=== PATIENT | male | born 1975 | race Hispanic/Latino ===

== ENCOUNTER 2023-01-16 14:10 | Emergency (ER) | payer BC ==
[2023-01-16 14:57] LABS: Absolute Lymphocytes (CBC) 8.1 K/uL (0.7-4.9); Hematocrit 45.2 % (39.6-49.0); Lymphocytes % 61.4 % (15.3-44.8); MCV 91.6 fL (80-100); MPV 8.6 fL (7.6-11.3); RBC Red Blood Cell Count 4.93 M/uL (4.33-5.43)
[2023-01-16 14:59] LABS: Protime INR 0.96
[2023-01-16 15:19] LABS: Bilirubin Direct 0.1 mg/dL (0-0.2); Bilirubin Total 0.4 mg/dL (0.2-1.0); Magnesium 2.1 mg/dL (1.6-2.4); Protein, Total 7.2 g/dL (6.4-8.2)
[2023-01-16 15:38] LABS: Blood Morphology Comment NOT SEEN (NOT SEEN); Platelet Estimate ADEQ; Smudge Cells PRESENT
--- NOTE | 2023-01-16 16:03 | RAD REPORT ---
EXAM DESCRIPTION: Svetlana Single View01/16/2023 3:12 pm CLINICAL HISTORY: CHEST PAIN COMPARISON: No comparisons TECHNIQUE: Portable AP view of the chest. FINDINGS: The lungs are clear. Mild right basilar atelectasis. No pneumothorax or effusion. The car diomediastinal contours are unremarkable. IMPRESSION: No acute cardiopulmonary process.
--- NOTE | 2023-01-16 16:28 | EDPHYS ---
Physician Documentation [facility] Name: Arturo Watson Age: 47 yrs Sex: Male : 1975 Arrival Date: 01/16/2023 Time: 14:12 Bed 17 Private MD: Torres Hampton E ED Physician Shankar Andrade HPI: 01/16 14:30 This 47 yrs old Male presents to ER via Ambulatory with complaints of Chest jh7 Pain, >125 HR. 14:30 Onset: The symptoms/episode began/occurred 3 day(s) ago. Associated signs and symptoms: jh7 Pertinent positives: palpitations, chest "soreness" , Pertinent negatives: fever, shortness of breath, vomiting, wheezing. 47-year-old male complains of intermittent palpitations for the past 3 days. Reports that his Apple Watch showed a heart rate of 170 on Monday he was seen at [facility] ER then all labs, EKG, and chest x-ray were normal. He reports that he had another episode on Monday where his heart rate increased to 160. He went to [facility] ER and all labs, chest x-ray, and CT scan for PE were negative. He reports that he had a quick episode of palpitations to 150 today with some chest soreness afterwards. Reports that nothing exacerbates the palpitations and that it is happened when he is watching TV. Denies any symptoms at this time. Reports that he has an appointment with the taxicab coordinator tomorrow. HX of CLL, sees Dr. Manriquez.. Historical: - Allergies: 14:30 No Known Allergies; jh5 - PMHx: 14:30 CLL; jh5 - PSHx: 14:30 RIGHT ROTATOR CUFF; jh5 - Immunization history:: Adult Immunizations up to date. - Social history:: Smoking status: Patient denies any tobacco usage or history of. ROS: 14:30 Constitutional: Negative for fever, chills, and weight loss, Eyes: Negative for injury, jh7 pain, redness, and discharge, Neck: Negative for injury, pain, and swelling, Respiratory: Negative for shortness of breath, cough, wheezing, and pleuritic chest pain, Abdomen/GI: Negative for abdominal pain, nausea, vomiting, diarrhea, and constipation, Back: Negative for injury and pain, MS/Extremity: Negative for injury and deformity, Skin: Negative for injury, rash, and discoloration, Neuro: Negative for headache, weakness, numbness, tingling, and seizure. 14:30 Cardiovascular: Positive for palpitations. 14:30 All other systems are negative. Exam: 14:30 Constitutional: This is a well developed, well nourished patient who is awake, alert, jh7 and in no acute distress. Head/Face: Normocephalic, atraumatic. Eyes: Pupils equal round and reactive to light, extra-ocular motions intact. Lids and lashes normal. Conjunctiva and sclera are non-icteric and not injected. Cornea within normal limits. Periorbital areas with no swelling, redness, or edema. ENT: Nares patent. No nasal discharge, no septal abnormalities noted. Tympanic membranes are normal and external auditory canals are clear. Oropharynx with no redness, swelling, or masses, exudates, or evidence of obstruction, uvula midline. Mucous membranes moist. Neck: Trachea midline, no thyromegaly or masses palpated, and no cervical lymphadenopathy. Supple, full range of motion without nuchal rigidity, or vertebral point tenderness. No Meningismus. Respiratory: Lungs have equal breath sounds bilaterally, clear to auscultation and percussion. No rales, rhonchi or wheezes noted. No increased work of breathing, no retractions or nasal flaring. Abdomen/GI: Soft, non-tender, with normal bowel sounds. No distension or tympany. No guarding or rebound. No evidence of tenderness throughout. Back: No spinal tenderness. No costovertebral tenderness. Full range of motion. Skin: Warm, dry with normal turgor. Normal color with no rashes, no lesions, and no evidence of cellulitis. MS/ Extremity: Pulses equal, no cyanosis. Neurovascular intact. Full, normal range of motion. Neuro: Awake and alert, GCS 15, oriented to person, place, time, and situation. Cranial nerves II-XII grossly intact. Motor strength 5/5 in all extremities. Sensory grossly intact. Cerebellar exam normal. Normal gait. Vital Signs: 14:27 BP 136 / 88; Pulse 98; Resp 16; Temp 98.6; Pulse Ox 98% ; Weight 97.52 kg; Height 5 ft. jh5 10 in. (177.80 cm); Pain 0/10; 14:30 BP 114 / 94; Pulse 97; Resp 18; Pulse Ox 97% on R/A; db 15:30 BP 116 / 72; Pulse 87; Resp 16; Pulse Ox 99% on R/A; db 16:00 BP 122 / 91; Pulse 87; Resp 16; Pulse Ox 99% on R/A; db 14:27 Body Mass Index 30.85 (97.52 kg, 177.80 cm) 5 MDM: 14:13 Patient medically screened. 7 16:10 Differential diagnosis: viral Infection, bacterial infection, pneumonia A-fib, acute jh7 FL, electrolyte imbalance, SVT. Data reviewed: vital signs, nurses notes, lab test result(s), EKG, radiologic studies, plain films. Consideration of Admission/Observation Escalation of care including admission/observation considered. Independent interpretation of the following test(s) in the Emergency Department EKG: See my EKG interpretation above X-Ray: My interpretation is No acute changes. Care significantly affected by the following chronic conditions: Cancer. Counseling: I had a detailed discussion with the patient and/or guardian regarding: the historical points, exam findings, and any diagnostic results supporting the discharge/admit diagnosis, lab results, radiology results, the need for outpatient follow up, a taxicab coordinator, to return to the emergency department if symptoms worsen or persist or if there are any questions or concerns that arise at home. Special discussion: Patient denied any symptoms during his ER stay. He states that his WBC count and lymphocytes are chronically elevated. All labs, EKG, and chest x-ray reviewed. Offered admission for observation, but the patient stated that he did not want to lose his cardiology appointment tomorrow. Agreed to discharge, but informed him that if he develops a return of symptoms or any new concerning symptoms, he may return to the ER for further eval.. 01/16 14:26 Order name: Basic Metabolic Panel; Complete Time: 15:26 [facility] 01/16 14:26 Order name: CBC with Diff; Complete Time: 15:44 [facility] 01/16 14:26 Order name: D-Dimer; Complete Time: 15:13 [facility] 01/16 14:26 Order name: LFT's; Complete Time: 15:26 [facility] 01/16 14:26 Order name: Magnesium; Complete Time: 15:26 [facility] 01/16 14:26 Order name: NT PRO-BNP; Complete Time: 15:26 [facility] 01/16 14:26 Order name: PT-INR; Complete Time: 15:13 [facility] 01/16 14:26 Order name: Troponin HS; Complete Time: 15:26 [facility] 01/16 14:26 Order name: XRAY Chest (1 view); Complete Time: 16:06 [facility] 01/16 14:26 Order name: EKG; Complete Time: 14:27 [facility] 01/16 14:26 Order name: Cardiac monitoring; Complete Time: 14:49 [facility] 01/16 14:26 Order name: EKG - Nurse/Tech; Complete Time: 14:49 [facility] 01/16 14:26 Order name: IV Saline Lock; Complete Time: 14:49 [facility] 01/16 15:39 Order name: Manual Differential; Complete Time: 15:44 [facility] 01/16 14:26 Order name: Labs collected and sent; Complete Time: 14:49 [facility] 01/16 14:26 Order name: O2 Per Protocol; Complete Time: 14:50 [facility] 01/16 14:26 Order name: O2 Sat Monitoring; Complete Time: 14:50 [facility] EC:31 Rate is 95 beats/min. Rhythm is regular. QRS [place] is Normal. ME interval is normal at [facility] 130 msec. QRS interval is normal at 70 msec. QT interval is normal at 318 msec. No Q waves. T waves are Normal. No ST changes noted. Clinical impression: Normal ECG. Administered Medications: No medications were administered Disposition: 16:00 Co-signature as Attending Physician, Shankar ÁLVAREZ was immediately available on-site ms3 in the Emergency Department for consultation in the care of the patient. Disposition Summary: 01/16/23 16:27 Discharge Ordered Location: Home [facility] Problem: new [facility] Symptoms: are resolved [facility] Condition: Stable [facility] Diagnosis - Palpitations [facility] Followup: [facility] - With: Private Physician - When: Tomorrow - Reason: Discharge Instructions: - Discharge Summary Sheet [facility] - Palpitations [facility] Forms: - Medication Reconciliation Form [facility] - Thank You Letter [facility] Signatures: Dispatcher [employer] EDShankar Cruz DO DO ms3 Katelin Perez, RN RN jh5 Carissa Escobedo FNP MACHINE WORKER [facility]
--- NOTE | 2023-01-16 16:28 | ER ---
Nurse's Notes [facility] Name: Arturo Watson Age: 47 yrs Sex: Male : 1975 Arrival Date: 01/16/2023 Time: 14:12 Bed 17 Private MD: Torres Hampton E Diagnosis: Palpitations Presentation: 01/16 14:27 Chief complaint: Patient states: these past couple days my heart rate will go real fast jh5 and then normal and it's just spells each day. It has never happened before. The first day this happened i had chest pain but not since then other than some soreness. Coronavirus screen: Vaccine status: Patient reports receiving the 1st dose of the Covid vaccine. Client denies travel out of the [place] in the last 14 days. Ebola Screen: Patient negative for fever greater than or equal to 101.5 degrees Fahrenheit, and additional compatible Ebola Virus Disease symptoms Patient denies exposure to infectious person. Patient denies travel to an Ebola-affected area in the 21 days before illness onset. Initial Sepsis Screen: Does the patient meet any 2 criteria? No. Patient's initial sepsis screen is negative. Does the patient have a suspected source of infection? No. Patient's initial sepsis screen is negative. Risk Assessment: Do you want to hurt yourself or someone else? Patient reports no desire to harm self or others. Onset of symptoms was January 13, 2023. 14:27 Method Of Arrival: Ambulatory [facility] 14:27 Acuity: RAMU 3 jh5 Triage Assessment: 14:27 Pain: Denies pain. Cardiovascular: Reports ACCELERATED HEART RATE. [facility] 14:30 General: Appears uncomfortable, slender, well groomed, well developed, Behavior is jh5 calm, cooperative, appropriate for age. Historical: - Allergies: 14:30 No Known Allergies; jh5 - PMHx: 14:30 CLL; jh5 - PSHx: 14:30 RIGHT ROTATOR CUFF; jh5 - Immunization history:: Adult Immunizations up to date. - Social history:: Smoking status: Patient denies any tobacco usage or history of. Screenin:00 [facility] ED Fall Risk Assessment (Adult) History of falling in the last 3 months, db including since admission No falls in past 3 months (0 pts) Confusion or Disorientation No (0 pts) Intoxicated or Sedated No (0 pts) Impaired Gait No (0 pts) Mobility Assist Device Used No (0 pt) Altered Elimination No (0 pt) Score/Fall Risk Level 0 - 2 = Low Risk Oriented to surroundings, Maintained a safe environment. Abuse screen: Denies threats or abuse. Denies injuries from another. Nutritional screening: No deficits noted. Tuberculosis screening: No symptoms or risk factors identified. Assessment: 14:45 Reassessment: Patient appears in no apparent distress at this time. Patient and/or db family updated on plan of care and expected duration. Pain level reassessed. Patient is alert, oriented x 3, equal unlabored respirations, skin warm/dry/pink. complains of chest pain with tachycardia heart feels a bit tight when it happens. denies pain now. General: Appears in no apparent distress. comfortable, Behavior is calm, cooperative. Pain: Complains of pain in chest Pain does not radiate. Pain began suddenly. Neuro: Level of Consciousness is awake, alert, obeys commands, Oriented to person, place, time, situation. Cardiovascular: Capillary refill < 3 seconds Rhythm is sinus rhythm. Respiratory: Airway is patent Respiratory effort is even, unlabored, Respiratory pattern is regular, symmetrical. GI: Abdomen is flat. 15:30 Reassessment: Patient appears in no apparent distress at this time. Patient and/or db family updated on plan of care and expected duration. Pain level reassessed. Patient is alert, oriented x 3, equal unlabored respirations, skin warm/dry/pink. 16:40 Reassessment: Patient appears in no apparent distress at this time. Patient and/or db family updated on plan of care and expected duration. Pain level reassessed. Patient is alert, oriented x 3, equal unlabored respirations, skin warm/dry/pink. Vital Signs: 14:27 BP 136 / 88; Pulse 98; Resp 16; Temp 98.6; Pulse Ox 98% ; Weight 97.52 kg; Height 5 ft. jh5 10 in. (177.80 cm); Pain 0/10; 14:30 BP 114 / 94; Pulse 97; Resp 18; Pulse Ox 97% on R/A; db 15:30 BP 116 / 72; Pulse 87; Resp 16; Pulse Ox 99% on R/A; db 16:00 BP 122 / 91; Pulse 87; Resp 16; Pulse Ox 99% on R/A; db 14:27 Body Mass Index 30.85 (97.52 kg, 177.80 cm) [facility] ED Course: 14:12 Patient arrived in ED. am2 14:12 Torres Hampton MD is Private Physician. am2 14:13 Carissa Escobedo FNP is [facility]. jh7 14:13 Shankar Andrade DO is Attending Physician. [facility] 14:27 Arm band placed on right wrist. 5 14:30 Triage completed. 5 14:44 Ambar Rader, RN is Primary Nurse. db 14:49 Basic Metabolic Panel Sent. bc6 14:49 CBC with Diff Sent. bc6 14:49 D-Dimer Sent. bc6 14:49 LFT's Sent. bc6 14:49 Magnesium Sent. bc6 14:49 NT PRO-BNP Sent. bc6 14:50 PT-INR Sent. bc6 14:50 Troponin HS Sent. bc6 14:50 Inserted saline lock: 20 gauge in right antecubital area, using aseptic technique. bc6 15:14 XRAY Chest (1 view) In Process Unspecified. EDMS 16:40 Patient has correct armband on for positive identification. Bed in low position. Call db light in reach. Side rails up X 1. Client placed on continuous cardiac and pulse oximetry monitoring. NIBP monitoring applied. 16:40 Patient maintains SpO2 saturation greater than 95% on room air. db 16:47 No provider procedures requiring assistance completed. IV discontinued, intact, db bleeding controlled, No redness/swelling at site. Administered Medications: No medications were administered Medication: 16:40 VIS not applicable for this client. db Outcome: 16:27 Discharge ordered by . [facility] 16:47 Discharged to home ambulatory. db 16:47 Condition: stable 16:47 Discharge instructions given to patient, Instructed on discharge instructions, follow up and referral plans. 16:47 Patient left the ED. db Signatures: Dispatcher [employer] EDKY Shawnee Piper 2 Katelin Perez, RN RN [facility] Carissa Escobedo FNP [place] [id number] Ambar Rader, RN RN Jessica Arrington 6 Corrections: (The following items were deleted from the chart) 14:31 14:27 Pulse 100bpm; Resp 16bpm; Pulse Ox 98%; Temp 98.6F; 97.52 kg; Height 5 ft. 10 jh5 in.; BMI: 30.8; Pain 0/10; jh5
[2023-01-16 17:05] VITALS: TEMP 98.6
[2023-01-16 17:12] VITALS: O2SAT 99
[2023-01-16 17:13] VITALS: BP 122/91
--- NOTE | 2023-01-16 18:37 | EKG ---
Test Date: 2023-01-16 Test Time: 14:31:53 Material Manager: JONATHON MEASUREMENT RESULTS: Intervals: Rate: 95 [place]: 130 QRSD: 70 QT: 318 QTc: 399 [place]: P: 5 [place]: 130 QRS: 20 T: 7 INTERPRETIVE STATEMENTS: Normal sinus rhythm Normal ECG No previous ECG available for comparison Electronically Signed On 01-16-23 18:36:40 BOTTLE CAPPER by Raul Robles
== END 2023-01-16 16:47 | disposition home or self-care (01) ==
LOC: ER 14:10
DX: R00.2 Palpitations (principal); R07.89 Other chest pain
CPT/HCPCS: 36415; 71045; 80048; 80076; 83735; 83880; 84484; 85025; 85379; 85610; 93005; 99285

== ENCOUNTER 2024-11-08 15:49 | Emergency (ER) | payer BC ==
[2024-11-08] MEDS ORDERED: NA CHLORIDE 0.9% 1,000 ML ONE (16:38)
[2024-11-08 16:57] LABS: Absolute Eosinophils 0.2 K/uL (0-0.5); Absolute Lymphocytes (CBC) 9.3 K/uL (0.7-4.9); Absolute Monocytes 0.5 K/uL (0.1-1.3); Absolute Neutrophil 4.4 K/uL (1.8-8.0); Basophils % 0.3 % (0-1.3); Eosinophils % 1.3 % (0-4.4); Hematocrit 45.2 % (39.6-49.0); Hemoglobin 15.4 g/dL (13.6-17.9); Lymphocytes % 64.1 % (15.3-44.8); MCH 30.8 pg (27.0-35.0); MCV 90.5 fL (80-100); MPV 8.5 fL (7.6-11.3); Monocytes % 3.6 % (3.3-12.3); Neutrophils % 30.7 % (41.7-73.7); Nucleated RBC Absolute Count 0.1 (0-0); Nucleated Red Blood Cells % 0.3 % (0-0); Platelets 183 thou/uL (152-406)
[2024-11-08 16:59] LABS: PTT, Activated Partial Thromb 28.3 SECONDS (24.3-36.9); Protime INR 0.98
[2024-11-08 17:04] LABS: Blood Morphology Comment NOT SEEN (NOT SEEN); Platelet Estimate ADEQ; White Blood Cell Scan OK (OK)
[2024-11-08 17:07] LABS: ALT/SGPT 49 U/L (16-61); AST/SGOT 25 U/L (15-37); Albumin 3.7 g/dL (3.4-5.0); Albumin/Globulin Ratio 1.1 (1.1-1.8); Alkaline Phosphatase 108 U/L (45-117); Anion Gap 8.3 mEq/L (5.0-15.0); BUN Blood Urea Nitrogen 9 mg/dL (7-18); Bicarbonate 27 mEq/L (21-32); Bilirubin Total 0.5 mg/dL (0.2-1.0); Globulin 3.3 g/dL (2.3-3.5); Glomerular Filtration Rate 73 ml/min (=/>90); Glucose Level 155 mg/dL (74-106); Magnesium 1.9 mg/dL (1.6-2.4); Potassium 3.3 mEq/L (3.5-5.1); Sodium Level 139 mEq/L (136-145); Troponin High Sensitivity 3.2 pg/mL (<58.9)
[2024-11-08 17:20] LABS: Bilirubin Direct < 0.2 mg/dL (0-0.2); Bilirubin Indirect, Calculated 0.3 mg/dL (0.2-0.8)
[2024-11-08] MEDS ORDERED: ONDANSETRON 4 MG/2 ML VIAL ONE (17:53)
[2024-11-08] MEDS ORDERED: MORPHINE 4 MG/ML SYR ONE (17:53)
--- NOTE | 2024-11-08 18:29 | RAD REPORT ---
EXAM: CT Head Brain Wo Cont HISTORY: CLL, blurred vision, SUERO COMPARISON: None TECHNIQUE: Multiple contiguous axial images were obtained for a CT of the brain without contrast. Sag ittal and coronal reformats were performed. One or more of the following dose reduction techniques were used: Automated exposure control, adjus tment of the mA and kV according to patient size, and iterative reconstruction. Unless otherwise specified, incidental findings do not require dedicated imaging follow-up. FINDINGS: No evidence of hydrocephalus, intracranial hemorrhage, or extra-axial fluid collection. The brain is normal in morphology. The calvarium is intact. The visualized paranasal sinuses and mastoid air cells are essentially clear . IMPRESSION: No evidence of acute intracranial abnormality.
--- NOTE | 2024-11-08 18:37 | RAD REPORT ---
EXAMINATION: CTA HEAD CLINICAL INDICATION: Male, 49 years old. h/o CLL, Blurred vision right eye + SUERO TECHNIQUE: Axial CT images were obtained through the head after intravenous contrast utilizing angiog raphic protocol with 3D post-processing (maximum intensity projection images, volume rendered images and/or shaded surface rendered images). One or more of the following dose reduction technique s were used: Automated exposure control, adjustment of the mA and/or kV according to patient size, and/or iterative reconstruction. Unless otherwise specified, incidental findings do not require dedic ated imaging follow-up. COMPARISON: No prior exam. FINDINGS: ICA: The petrous, cavernous, and supraclinoid segments of the bilateral internal carotid arteries are normal. MAGUE: Anterior cerebral arteries are normal bilaterally except for congenitally hypoplastic left A1 se gment. The anterior communicating artery is patent. MCA: Middle cerebral arteries are normal bilaterally. SECURITY SHIFT SUPERVISOR: Posterior cerebral arteries are normal bilaterally. Left posterior communicating artery is paten t. Left P1 segment is diminutive. Vertebrobasilar: The vertebral arteries are patent, with markedly diminutive appearance of the right intradural vertebral artery. The basilar artery is normal in appearance. 3D images confirm these findings. IMPRESSION: No evidence of large vessel occlusion or hemodynamically significant stenosis. Developmental changes as above.
--- NOTE | 2024-11-08 18:41 | RAD REPORT ---
EXAMINATION: CT Neck Angio CLINICAL INDICATION: Male, 49 years old. [facility] CLL Pt, neck pain/headache/blurred vison Bed Name: 5 TECHNIQUE: Axial CT images were obtained from the aortic arch to the skull base after intravenous con trast utilizing angiographic protocol. Multiplanar reformats, as well as 3D post-processing (maximum intensity projection images, volume rendered images and/or shaded surface rendered images) w ere generated and reviewed. One or more of the following dose reduction techniques were used: Automated exposure control, adjustment of the mA and/or kV according to patient size, and/or iterativ e reconstruction. Unless otherwise specified, incidental findings do not require dedicated imaging follow-up. COMPARISON: No prior exam. FINDINGS: AORTA: The imaged aortic arch is normal. Normal three-vessel configuration of the arch. CCA: No artifact The common carotid arteries are patent and normal in caliber. ICA/ECA: Bilateral internal and external carotid arteries are patent. There is no significant interna l carotid artery stenosis. VERTEBRAL: The cervical vertebral arteries are patent to the skull base, with diminutive appearance o f right vertebral artery throughout its course, likely developmental. Vertebral arteries are codominant. SOFT TISSUE: Numerous prominent lymph nodes throughout the neck, largest on the left is at level 2A m easuring 1.5 cm in short axis, and left 1B measuring 1.6 cm in short axis. Largest on the right is at level 2A measuring 1.4 cm in short axis. The visualized lung apices are clear. 3D images confirm these findings. IMPRESSION: No significant flow abnormality of the neck vessels is identified. Bilateral cervical adenopathy as above. Patient has reported history of CLL. NASCET criteria used to quantify ICA stenosis, with the following grading scheme: Mild 0-49% stenosis Moderate 50-69% stenosis Severe 70-99% stenosis Reference: [place] Symptomatic Carotid Endarterectomy Trial Collaborators; Margie OCAMPOM, Antonina DW, Nisha RB, et al. Beneficial effect of carotid endarterectomy in symptomatic patients with high-grade carotid stenosis. N Engl J Med. 1990 15;325(7):445-53.
--- NOTE | 2024-11-08 18:48 | RAD REPORT ---
EXAM: CT Thorax W/ Con CLINICAL INDICATION: Male, 49 years old. [facility] no Headache/neck pain into chest;Chest pain Bed Name: 5 N TECHNIQUE: Routine CT scan of the chest with intravenous contrast. One or more of the following dose reduction techniques were used: Automated exposure control, adjustment of the mA and/or kV according to patient size, and/or iterative reconstruction. Unless otherwise specified, incidental fi ndings do not require dedicated imaging follow-up. COMPARISON: Chest radiograph 01/02/2024. FINDINGS: LUNGS: Airways are clear. No evidence of airspace or interstitial process. No nodules. PLEURA: No pleural effusion. No pneumothorax. MEDIASTINUM AND LYMPH NODES: No mediastinal mass or fluid collection. Mildly prominent mediastinal ly mph nodes, largest in the subcarinal space measuring 8 mm in short axis. No suspicious hilar or axillary adenopathy. OSSEOUS STRUCTURES AND CHEST WALL: No acute osseous abnormality. Small sclerotic lesion within the la teral left fourth rib, nonspecific, and could represent a small bone island. UPPER ABDOMEN: No significant abnormalities. IMPRESSION: No acute or significant pulmonary abnormalities. Mildly prominent mediastinal lymph nodes, not exceeding 8 mm in short axis.
--- NOTE | 2024-11-08 18:55 | EDPHYS ---
Physician Documentation [facility] Name: Arturo Watson Age: 49 yrs Sex: Male : 1975 Arrival Date: 11/08/2024 Time: 15:49 Bed 5 Private MD: ED Physician Daniel Xavier HPI: 11/08 16:36 This 49 yrs old Male presents to ER via Ambulatory with complaints of Blurred sp3 Vision - right eye. 16:36 . 49-year-old male with history of CLL currently being monitored outpatient with no sp3 chemotherapy or immunotherapy with stable cell counts presents to the ED with acute headache over the last 2 weeks or so predominantly on the right side of the head coupled with progressively increasing blurred vision on the right eye. Patient has a pterygium which she was scheduled for removal but patient states that this blurred vision is different and the headache is now present. Patient also states that the headache continues down his neck on the right side extending into his chest. No prior history of DVT or PE noted. Patient denies fever, shortness of breath, left-sided chest pain, abdominal pain, nausea, vomiting, diarrhea, rash, syncope, near syncope, known sick contacts, travel history, prolonged immobilization, or any other signs or symptoms on ROS at this time. Patient has seen cardiology in the past and had negative cardiac stress tests and workups.. Historical: - Allergies: 16:01 No Known Allergies; cm10 - PMHx: 16:01 CLL; cm10 - PSHx: 16:01 right rotator cuff; cm10 - Immunization history:: Adult Immunizations up to date. - Infectious Disease History:: Denies. - Social history:: Smoking status: Patient denies any tobacco usage or history of. ROS: 16:47 Constitutional: Negative for fever, chills, and weight loss, Eyes: Negative for injury, sp3 pain, redness, and discharge, ENT: Negative for injury, pain, and discharge, Respiratory: Negative for shortness of breath, cough, wheezing, and pleuritic chest pain, Abdomen/GI: Negative for abdominal pain, nausea, vomiting, diarrhea, and constipation, Back: Negative for injury and pain, MS/Extremity: Negative for injury and deformity, Skin: Negative for injury, rash, and discoloration, Psych: Negative for depression, anxiety, suicide ideation, homicidal ideation, and hallucinations, Allergy/Immunology: Negative for hives, rash, and allergies, Endocrine: Negative for neck swelling, polydipsia, polyuria, polyphagia, and marked weight changes, 16:47 All other systems are negative, Exam: 16:47 Constitutional: This is a well developed, well nourished patient who is awake, alert, sp3 and in no acute distress. Head/Face: Normocephalic, atraumatic. ENT: Nares patent. No nasal discharge, no septal abnormalities noted. External auditory canals are clear. Oropharynx with no redness, swelling, or masses, exudates, or evidence of obstruction, uvula midline. Mucous membranes moist. Neck: Trachea midline, no thyromegaly or masses palpated, and no cervical lymphadenopathy. Supple, full range of motion without nuchal rigidity, or vertebral point tenderness. No Meningismus. Chest/axilla: Normal chest wall appearance and motion. Nontender with no deformity. No lesions are appreciated. Respiratory: Lungs have equal breath sounds bilaterally, clear to auscultation and percussion. No rales, rhonchi or wheezes noted. No increased work of breathing, no retractions or nasal flaring. Abdomen/GI: Soft, non-tender, with normal bowel sounds. No distension or tympany. No guarding or rebound. No evidence of tenderness throughout. Back: No spinal tenderness. No costovertebral tenderness. Full range of motion. Skin: Warm, dry with normal turgor. Normal color with no rashes, no lesions, and no evidence of cellulitis. MS/ Extremity: Pulses equal, no cyanosis. Neurovascular intact. Full, normal range of motion. Psych: Awake, alert, with orientation to person, place and time. Behavior, mood, and affect are within normal limits. 16:47 Eyes: Pterygium present on the right eye. No anterior chamber hyphema or cloudiness noted.. 16:47 Cardiovascular: Rate: tachycardic, Patient tachycardia from 100-110, 16:47 Neuro: Blurry vision in the right eye noted on gross visual acuity. No focal weakness noted. Remainder of cranial nerves are normal. Pain is inducible on movement and palpation but patient states that is at baseline and does not feel it is muscular., 17:24 ECG was reviewed by the Attending Physician. EKG demonstrates sinus tachycardia at 103 sp3 bpm with normal intervals, normal QRS, normal axis, normal ST/T-segment's without evidence of acute ischemia. Vital Signs: 15:59 BP 137 / 95; Pulse 109; Resp 18; Temp 98.5(O); Pulse Ox 100% on R/A; Weight 102.06 kg; cm10 Height 5 ft. 10 in. ; Pain 6/10; 18:15 BP 124 / 86; Pulse 89; Resp 18 S; Pulse Ox 99% on R/A; aa5 18:45 BP 122 / 80; Pulse 87; Resp 16 S; Pulse Ox 99% on R/A; aa5 15:59 Body Mass Index 32.28 (102.06 kg, 177.8 cm) cm10 15:59 Pain Scale: Adult cm10 MDM: 16:02 Medical Screening Exam initiated sp3 16:49 Data reviewed: vital signs, nurses notes, old medical records, lab test result(s), EKG, sp3 radiologic studies. ED course: 49-year-old male with headache, right-sided neck pain, right eye blurriness and right sided chest pain. Differential diagnosis given his CLL history is broad and includes recurrence of cancerous lesion though no history of solid tumors in the past. Arterial pathology also a possibility. I am not highly suspicious of acute coronary syndrome or PE however they are a possibility as well. Given likely diagnoses, we will obtain CT scan of the head, CT angiogram of the neck and head as well and CT chest with IV contrast. PE protocol considered however dye load is better utilized in the cerebral system. Routine labs also pending. Patient declined any pain medication saying that his Tylenol and tramadol that he has had for prior uses has been sufficient. Disposition pending workup and patient course.. 18:53 ED course: All scans demonstrate no significant abnormality. All blood work normal sp3 except for WBC count of 14,000 with lymphocytic shift which is approximately his baseline. Pain is improved and vital signs are normal. 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 12 16:28 Order name: Basic Metabolic Panel; Complete Time: 17:22 sp3 20 16:28 Order name: CBC with Diff; Complete Time: 17:22 sp3 11/08 16:28 Order name: Hepatic Function; Complete Time: 17:22 sp3 11/08 16:28 Order name: High Sensitivity Troponin; Complete Time: 17:22 sp3 11/08 16:28 Order name: Magnesium; Complete Time: 17:22 sp3 11/08 16:28 Order name: Protime (+inr); Complete Time: 17:22 sp3 11/08 16:28 Order name: Ptt, Activated; Complete Time: 17:22 sp3 11/08 17:04 Order name: CBC Smear Scan; Complete Time: 17:22 EDMS 11/08 16:28 Order name: CT Head Angio; Complete Time: 18:50 sp3 11/08 16:28 Order name: CT Neck Angio; Complete Time: 18:50 sp3 11/08 16:28 Order name: CT Head Brain wo Cont; Complete Time: 18:50 sp3 11/08 16:28 Order name: CT Chest W/ Con; Complete Time: 18:50 sp3 11/08 16:28 Order name: EKG; Complete Time: 16:30 sp3 11/08 16:28 Order name: Cardiac monitoring; Complete Time: 16:29 sp3 11/08 16:28 Order name: EKG - Nurse/Tech; Complete Time: 17:21 sp3 11/08 16:28 Order name: IV Saline Lock; Complete Time: 16:39 sp3 11/08 16:28 Order name: Labs collected and sent; Complete Time: 16:39 sp3 11/08 16:28 Order name: NPO; Complete Time: 16:29 sp3 11/08 16:28 Order name: O2 Sat Monitoring; Complete Time: 16:29 sp3 Administered Medications: 16:42 Drug: NS 0.9% IV 1000 ml IV at 1 bolus Per protocol; to be given as a bolus over 60 aa5 minutes Route: IV; Rate: 1 bolus; Site: left antecubital; 17:50 Follow up: IV Status: Completed infusion; IV Intake: 1000ml aa5 18:15 Drug: morphine IVP or IV 4 mg IVP once over 4 mins Route: IVP; Infused Over: 4 mins; aa5 Site: left antecubital; 18:30 Follow up: Response: No adverse reaction aa5 18:15 Drug: Ondansetron IVP 4 mg IVP once; over 2 minutes Route: IVP; Site: left antecubital; aa5 18:30 Follow up: Response: No adverse reaction aa5 Disposition Summary: 11/08/24 18:54 Discharge Ordered Notes: Location: Home sp3 Condition: Stable sp3 Diagnosis - Headache, neck pain, CLL sp3 Followup: sp3 - With: Private Physician - When: Upon discharge from the Emergency Department - Reason: Continuance of care Discharge Instructions: - Discharge Summary Sheet sp3 - General Headache Without Cause sp3 Forms: - Medication Reconciliation Form sp3 - Antibiotic Education sp3 - Prescription Opioid Use sp3 - Patient Portal Instructions sp3 - Leadership Thank You Letter sp3 Prescriptions: - Tramadol 50 mg Oral Tablet - take 1 tablet ORAL route every 8 hours as needed; 12 tablet; Refills: 0, sp3 Product Selection Permitted Signatures: Dispatcher [employer] EDRhoda Ortez RN RN aa5 Daniel Xavier MD MD sp3 Allison Caal RN RN cm10 Corrections: (The following items were deleted from the chart) 16:30 16:30 Thorax W/ Con+CT.RAD.BRZ ordered. EDMS EDMS
--- NOTE | 2024-11-08 18:55 | ER ---
Nurse's Notes [facility] Name: Arturo Watson Age: 49 yrs Sex: Male : 1975 Arrival Date: 11/08/2024 Time: 15:49 Bed 5 Private MD: Diagnosis: Headache, neck pain, CLL Presentation: 11/08 15:59 Chief complaint: Patient states: blurred vision to right eye that has been intermittent cm10 over the last few months that got worse yesterday afternoon. pt states that yesterday he started having pain and numbness to right side of face. pt also complaining of pain to right side of neck and chest. Coronavirus screen: Client denies travel out of the [place] in the last 14 days. Ebola Screen: Patient denies travel to an Ebola-affected area in the 21 days before illness onset. Initial Sepsis Screen: Does the patient meet any 2 criteria? HR > 90 bpm. Does the patient have a suspected source of infection? No. Patient's initial sepsis screen is negative. Risk Assessment: Do you want to hurt yourself or someone else? Patient reports no desire to harm self or others. Onset of symptoms was November 08, 2024. 15:59 Method Of Arrival: Ambulatory cm10 15:59 Acuity: RAMU 3 cm10 Triage Assessment: 16:01 General: Appears in no apparent distress. comfortable, Behavior is calm, cooperative. cm10 Neuro: No deficits noted. Level of Consciousness is awake, alert, obeys commands, Oriented to person, place, time, situation, Appropriate for age Reports blurred vision in right eye. Historical: - Allergies: 16:01 No Known Allergies; cm10 - PMHx: 16:01 CLL; cm10 - PSHx: 16:01 right rotator cuff; cm10 - Immunization history:: Adult Immunizations up to date. - Infectious Disease History:: Denies. - Social history:: Smoking status: Patient denies any tobacco usage or history of. Screenin:[facility] ED Fall Risk Assessment (Adult) History of falling in the last 3 months, aa5 including since admission No falls in past 3 months (0 pts) Confusion or Disorientation No (0 pts) Intoxicated or Sedated No (0 pts) Impaired Gait No (0 pts) Mobility Assist Device Used No (0 pt) Altered Elimination No (0 pt) Score/Fall Risk Level 0 - 2 = Low Risk Oriented to surroundings, Maintained a safe environment, Educated pt \\T\\ family on fall prevention, incl call for assistance when getting out of bed. Abuse screen: Denies threats or abuse. Nutritional screening: No deficits noted. Tuberculosis screening: No symptoms or risk factors identified. Assessment: 16:25 General: Appears uncomfortable, Behavior is calm, cooperative. Pain: Complains of pain aa5 in right eye, headache to right side of head Pain radiates to right side of neck and chest Pain currently is 6 out of 10 on a pain scale. Quality of pain is described as aching, pressure, Pain began "months ago" Is continuous. Neuro: Level of Consciousness is awake, alert, obeys commands, Oriented to person, place, time, situation, Stitch Welder are equal bilaterally Moves all extremities. Gait is steady, Speech is normal, Facial symmetry appears normal, Reports blurred vision in right eye. Cardiovascular: Heart tones S1 S2 present Rhythm is regular. Respiratory: Airway is patent Respiratory effort is even, unlabored, Respiratory pattern is regular, symmetrical. GI: Abdomen is round non-distended, Bowel sounds present X 4 quads. Abd is soft and non tender X 4 quads. Patient currently denies nausea, vomiting. : No signs and/or symptoms were reported regarding the genitourinary system. EENT: Sclera/Cornea are reddened in right eye. Derm: Skin is pink, warm \\T\\ dry. Musculoskeletal: Range of motion: intact in all extremities. 17:50 Reassessment: Patient is alert, oriented x 3, equal unlabored respirations, skin aa5 warm/dry/pink. Pt requesting pain medication, was notified. . 17:59 Reassessment: To bedside to medicate pt, pt currently at radiology . aa5 18:15 Reassessment: Patient is alert, oriented x 3, equal unlabored respirations, skin aa5 warm/dry/pink. 19:05 Reassessment: Patient is alert, oriented x 3, equal unlabored respirations, skin aa5 warm/dry/pink. Patient states feeling better. Vital Signs: 15:59 BP 137 / 95; Pulse 109; Resp 18; Temp 98.5(O); Pulse Ox 100% on R/A; Weight 102.06 kg; cm10 Height 5 ft. 10 in. ; Pain 6/10; 18:15 BP 124 / 86; Pulse 89; Resp 18 S; Pulse Ox 99% on R/A; aa5 18:45 BP 122 / 80; Pulse 87; Resp 16 S; Pulse Ox 99% on R/A; aa5 15:59 Body Mass Index 32.28 (102.06 kg, 177.8 cm) cm10 15:59 Pain Scale: Adult cm10 ED Course: 15:53 Patient arrived in ED. ra3 15:54 Daniel Xavier MD is Attending Physician. sp3 16:01 Triage completed. cm10 16:01 Arm band placed on right wrist. Patient placed in an exam room, on a stretcher. cm10 16:10 Rhoda Brownlee, KATIA is Primary Nurse. aa5 16:25 Patient has correct armband on for positive identification. Bed in low position. Call aa5 light in reach. Side rails up X 1. Client placed on continuous cardiac and pulse oximetry monitoring. NIBP monitoring applied. panel monitor on. Pulse ox on. NIBP on. 16:38 Initial lab(s) drawn, by ar, sent to lab. Inserted saline lock: 20 gauge in left zm antecubital area, using aseptic technique. Blood collected. Flushed with 10 mL NS. 16:39 Basic Metabolic Panel Sent. zm 16:39 CBC with Diff Sent. zm 16:39 Hepatic Function Sent. zm 16:39 High Sensitivity Troponin Sent. zm 16:39 Magnesium Sent. zm 16:39 Protime (+inr) Sent. zm 16:39 Ptt, Activated Sent. zm 17:20 EKG done, by ED staff, reviewed by Daniel Xavier MD. zm 18:02 CT Head Brain wo Cont In Process Unspecified. EDMS 18:02 CT Neck Angio In Process Unspecified. EDMS 18:02 CT Chest W/ Con In Process Unspecified. EDMS 18:02 CT Head Angio In Process Unspecified. EDMS 18:54 No provider procedures requiring assistance completed. aa5 19:05 IV discontinued, intact, bleeding controlled, No redness/swelling at site. Pressure aa5 dressing applied. Administered Medications: 16:42 Drug: NS 0.9% IV 1000 ml IV at 1 bolus Per protocol; to be given as a bolus over 60 aa5 minutes Route: IV; Rate: 1 bolus; Site: left antecubital; 17:50 Follow up: IV Status: Completed infusion; IV Intake: 1000ml aa5 18:15 Drug: morphine IVP or IV 4 mg IVP once over 4 mins Route: IVP; Infused Over: 4 mins; aa5 Site: left antecubital; 18:30 Follow up: Response: No adverse reaction aa5 18:15 Drug: Ondansetron IVP 4 mg IVP once; over 2 minutes Route: IVP; Site: left antecubital; aa5 18:30 Follow up: Response: No adverse reaction aa5 Medication: 18:15 VIS not applicable for this client. aa5 Intake: 17:50 IV: 1000ml; Total: 1000ml. aa5 Outcome: 18:54 Discharge ordered by . sp3 19:05 Discharged to home ambulatory, with family, aa5 19:05 Condition: stable 19:05 Discharge instructions given to patient, Instructed on discharge instructions, follow up and referral plans. medication usage, Demonstrated understanding of instructions, follow-up care, medications, Prescriptions given X 1, 19:11 Patient left the ED. kmf Signatures: Dispatcher [employer] EDMS Rhoda Brownlee RN RN aa5 Daniel Xavier MD MD sp3 Ten, Allison El RN RN cm10 Danica Voss f Rona Lay ra3 Corrections: (The following items were deleted from the chart) 17:05 16:42 NS 0.9% IV 1000 ml IV at 1 bolus in right antecubital aa5 aa5
[2024-11-08 20:07] VITALS: TEMP 98.5
[2024-11-08 20:08] VITALS: BP 124/86; O2SAT 99
--- NOTE | 2024-11-10 13:07 | EKG ---
Test Date: 2024-11-08 Test Time: 17:18:12 Set Decorator: KAYODE MEASUREMENT RESULTS: Intervals: Rate: 103 TN: 162 QRSD: 78 QT: 338 QTc: 442 [place]: P: 71 TN: 162 QRS: 73 T: 72 INTERPRETIVE STATEMENTS: Sinus tachycardia Otherwise normal ECG Compared to ECG 01/16/2023 14:31:53 Sinus rhythm no longer present Electronically Signed On 11-10-24 13:04:36 [employer]NING [employer]AME [employer] by Alli Allen
== END 2024-11-08 19:11 | disposition home or self-care (01) ==
LOC: ER 15:49
DX: R51.9 Headache, unspecified (principal); M54.2 Cervicalgia; C91.10 Chronic lymphocytic leukemia of B-cell type not having achieved remission; H53.8 Other visual disturbances
CPT/HCPCS: 96361; 93005; 85025; 80048; 36415; 83735; 85610; 80076; 85730; 84484; 70450; 71260; 70496; 70498; 96375; 96374; 99285; Q9967; J2405; J7030